=== PATIENT | male | born 1970 | race African-American/Black ===

== ENCOUNTER → 2020-11-17 | Outpatient (CLI) | payer OTHER | LOC: COL.PUL 07:54 → EDBD 08:00 → COL.PUL 08:00 | DX: Z02.71 Encounter for disability determination (principal); J44.9 Chronic obstructive pulmonary disease, unspecified ==

== ENCOUNTER 2022-09-10 13:23 | Emergency (ER) | payer OTHER ==
[~2022-09-10] VITALS: Ht 185.4 cm; Wt 104.5 kg
[2022-09-10 13:45] VITALS: TEMP 98.3
[2022-09-10] MEDS ORDERED: NORCO 325 MG-51 TAB PO (14:32)
[2022-09-10] MEDS ORDERED: MEDROL 4MG DOSPA4 MG PO (14:32)
[2022-09-10 14:54] VITALS: BP 135/76; PULSE 92
== END 2022-09-10 14:56 | disposition home or self-care (01) ==
LOC: COL.ER 13:23
DX: M54.12 Radiculopathy, cervical region (principal); Z28.310 Unvaccinated for COVID-19
CPT/HCPCS: J7512